=== PATIENT | male | born 1985 | race Caucasian/White ===

== ENCOUNTER 2017-06-01 20:12 | Emergency (ER) | payer OTHER ==
[~2017-06-01] VITALS: Ht 185.4 cm; Wt 93.4 kg
[2017-06-01 21:02] VITALS: BP 149/93; Ht 185.4 cm; Wt 93.4 kg
[2017-06-02 00:32] LABS: AMPHETAMINE QUAL UR POSITIVE (NEG <=1000)
== END 2017-06-01 23:41 | disposition left against medical advice (07) ==
LOC: ED 20:12
PROVIDERS: Emergency Medicine Emergency Medical Services
DX: G89.29 Other chronic pain (principal); M54.9 Dorsalgia, unspecified